=== PATIENT | female | born 1995 | race Caucasian/White ===

== ENCOUNTER 2019-10-08 16:37 | Outpatient (CLI) | payer BC, MEDICAID ==
--- NOTE | 2019-10-08 22:47 | Ultrasound Report ---
Reason: POSITIVE TEST Procedure Date: 10/08/2019 Accession Number: [id number] / [id number] Procedure: US - OB First Trimester CPT Code: Final Report FULL RESULT: EXAM: FIRST TRIMESTER OBSTETRIC ULTRASOUND (Less than 11 weeks) EXAM DATE: 10/08/2019 05:52 PM. CLINICAL HISTORY: POSITIVE TEST. LMP: Unknown. COMPARISONS: None. TECHNIQUE: Transabdominal and transvaginal ultrasound examination with static image documentation. CLINICAL DATES: EGA 10 weeks 1 day with SOLEDAD 05/04/2020 based on LMP. ASSESSMENT: Gestational Sac: Single intrauterine. Mean gestational sac diameter: 16.3 mm = 6 weeks 3 days. Embryo: CRL (crown-rump length) 8.4 mm = 6 weeks 6 days. Cardiac activity: 131 beats per minute. Yolk sac: 3.3 mm. Amniotic fluid: Not accurately assessed at this gestational age. Early placenta: Not visible at this gestational age. Other: Small right-sided perigestational hypoechoic collection measuring 1.5 x 0.4 x 0.3 cm, most likely representing a small perigestational hematoma.. MATERNAL STRUCTURES: Uterus: Anteverted. Unremarkable. Cervix: Closed. Right Ovary/Adnexa: The ovary measures 3.9 x 1.7 x 2.3 cm, volume 8 cc. Unremarkable. Left Ovary/Adnexa: The ovary measures 4.1 x 2.5 x 2.6 cm, volume 14.3 cc. Corpus luteal cyst measuring 2.2 x 2 x 1.6 cm. Free Fluid: None. Other: None. IMPRESSION: 1. Single viable intrauterine at EGA 6 weeks 6 days with SOLEDAD 05/27/2020 based on crown-rump length, which is discordant with clinical dates. 2. Small perigestational hematoma measuring 1.5 x 0.4 x 0.3 cm.. RADIA
== END 2019-10-08 16:38 | disposition home or self-care (01) ==
LOC: DI 16:37
PROVIDERS: ATTEND Nurse Practitioner Obstetrics & Gynecology
DX: Z32.01 Encounter for pregnancy test, result positive (principal)
CPT/HCPCS: 76801

== ENCOUNTER 2019-10-13 10:00 | Outpatient (CLI) | payer BC, MEDICAID ==
[2019-10-13 15:48] LABS: MUDS CUTOFF CONCENTRATIONS CUTOFF CONC BELOW:
[2019-10-13 16:12] LABS: BILIRUBIN,URINE NEGATIVE (NEGATIVE); GLUCOSE, URINE (UA) NEGATIVE (NEGATIVE); KETONES,URINE (UA) NEGATIVE (NEGATIVE); LEUKOCYTE ESTERASE, URINE NEGATIVE (NEGATIVE); NITRITE,URINE NEGATIVE (NEGATIVE); OCCULT BLOOD,URINE NEGATIVE (NEGATIVE); PROTEIN,URINE 30 mg/dL (NEGATIVE); UROBILINOGEN,URINE 0.2 (NORMAL) E.U./dL (NORMAL)
[2019-10-13 16:19] LABS: CLARITY,URINE CLEAR (CLEAR)
[2019-10-13 16:44] LABS: AMPHETAMINE SCREEN,URINE POSITIVE (NEGATIVE); BENZODIAZEPINES SCREEN, URINE NEGATIVE (NEGATIVE); COCAINE SCREEN URINE NEGATIVE (NEGATIVE); METHADONE SCREEN, URINE NEGATIVE (NEGATIVE); METHAMPHETAMINES SCREEN, URINE NEGATIVE (NEGATIVE); OPIATE SCREEN, URINE NEGATIVE (NEGATIVE); OXYCODONE SCREEN, URINE NEGATIVE (NEGATIVE); PROPOXYPHENE SCREEN, URINE NEGATIVE (NEGATIVE); TRICYCLIC ANTIDEPRESSANT,URINE NEGATIVE (NEGATIVE)
[2019-10-13 16:57] LABS: RBC,URINE 0-5 /HPF (0-5)
[2019-10-13 16:58] LABS: AMORPHOUS SEDIMENT,UR Marked /LPF; BACTERIA,URINE Few /HPF (None Seen); CASTS, URINE 0-2 Fine Granular /LPF; CRYSTALS,URINE 11-25 Ca Oxalate /LPF; MUCUS,URINE Few Strands; SQUAMOUS EPITHELIAL CELL,UR MOD Squamous (<= Few)
[2019-10-13 20:45] LABS: TRICHOMONAS VAGINALIS DNA NEGATIVE (NEGATIVE)
== END 2019-10-13 23:59 | disposition home or self-care (01) ==
LOC: LAB.R 10:00
PROVIDERS: ATTEND Obstetrics & Gynecology
DX: Z11.3 Encounter for screening for infections with a predominantly sexual mode of transmission (principal)
CPT/HCPCS: 80306; 80324; 80359; 81001; 81599; 87086; 87491; 87591; 87661

== ENCOUNTER 2019-11-09 12:59 | Outpatient (CLI) | payer BC, MEDICAID ==
[2019-11-09 13:54] LABS: BASOPHILS % (AUTO) 0.5 %; EOSINOPHILS # (AUTO) 0.2 10^3/uL (0.0-0.7); EOSINOPHILS % (AUTO) 2.1 %; HGB - HEMOGLOBIN 12.3 g/dL (12.0-16.0); LYMPHOCYTES # (AUTO) 2.2 10^3/uL (1.5-3.5); LYMPHOCYTES % (AUTO) 27.2 %; MEAN CORPUSCULAR HEMOGLOBIN 29.1 pg (27.0-31.0); MEAN CORPUSCULAR HGB CONC 32.5 g/dL (32.0-36.0); MEAN CORPUSCULAR VOLUME 89.6 fL (81.0-99.0); MEAN PLATELET VOLUME 9.6 fL (7.9-10.8); MONOCYTES # (AUTO) 0.6 10^3/uL (0.0-1.0); MONOCYTES % (AUTO) 7.5 %; NEUTROPHILS % (AUTO) 62.3 %; PLT - PLATELET COUNT 357 10^3/uL (130-450); RED BLOOD COUNT 4.22 10^6/uL (4.20-5.40); RED CELL DISTRIBUTION WIDTH 13.1 % (12.0-15.0); WHITE BLOOD COUNT 8.1 x10^3/uL (4.8-10.8)
[2019-11-10 11:35] LABS: HEPATITIS B SURFACE ANTIGEN NON-REACTIVE (NON-REACTIVE)
[2019-11-10 12:35] LABS: HEPATITIS C ANTIBODY NON-REACTIVE (NON-REACTIVE)
[2019-11-10 12:49] LABS: HIV AG/AB 4TH GEN NON-REACTIVE (NON-REACTIVE)
== END 2019-11-09 13:00 | disposition home or self-care (01) ==
LOC: LAB 12:59
PROVIDERS: ATTEND Obstetrics & Gynecology
DX: Z36.0 Encounter for antenatal screening for chromosomal anomalies (principal)
CPT/HCPCS: 36415; 81599; 85025; 86592; 86762; 86803; 86850; 86900; 86901; 87340; 87389

== ENCOUNTER 2020-01-02 09:59 | Outpatient (CLI) | payer BC, MEDICAID ==
--- NOTE | 2020-01-03 04:24 | Ultrasound Report ---
Reason: Procedure Date: 01/02/2020 Accession Number: [id number] / [id number] Procedure: US - OB Detailed Eval CPT Code: Final Report FULL RESULT: EXAM: COMPLETE OBSTETRICAL ULTRASOUND EXAM DATE: 01/02/2020 11:16 AM. CLINICAL HISTORY: anatomic survey. COMPARISON: OB FIRST TRIMESTER 10/08/2019 4:55 PM. TECHNIQUE: Real-time sonographic evaluation of the fetus performed by the bariatric program coordinator. Multiple manufacturer representative static images were saved for review. DATING: Established EGA 19 weeks 1 day with SOLEDAD 05/27/2020 based on first ultrasound. EGA 19 weeks 3 days with SOLEDAD 05/25/2020 based on the current ultrasound. GENERAL EVALUATION Steinberg . Cardiac activity: 157 bpm. movement: Visualized. Presentation: Variable. Placenta: Posterior position. No evidence for previa. Umbilical cord: 3 vessel cord. Eccentric placental cord origin which is 1.9 cm from the placental edge. Amniotic fluid: Subjectively normal. MVP 4.4 cm. BIOMETRY Bi-Parietal Diameter (BPD): 4.30 cm, 19 weeks 0 days Head Circumference (HC): 16.43 cm, 19 weeks 1 day Abdominal Circumference (AC): 15.29 cm, 20 weeks 3 days Femur Length (FL): 2.89 cm, 18 weeks 6 days Estimated Weight: 306 g, 76.2 percentile for 19 weeks 1 day. ANATOMY There appears to be clubfoot of the left foot. Otherwise, intracranial structures, profile, face/nose/lips, spine, 4 chamber heart and outflow tracts, stomach, abdominal wall and cord insertion, diaphragm, kidneys, bladder, and extremities were visualized and demonstrate no abnormality. MATERNAL STRUCTURES Uterus: Unremarkable. Cervix: Long and closed. Transabdominal length 4.0 cm. Right ovary/adnexa: Unremarkable. Left ovary/adnexa: Unremarkable. Free fluid: None. IMPRESSION: 1. Steinberg live intrauterine with gestational age 19 weeks 1 day based on first ultrasound. 2. Estimated weight is within expected limits for assigned dating. 3. There appears to be clubfoot of the left foot. Otherwise normal anatomic survey. RADIA
== END 2020-01-02 10:00 | disposition home or self-care (01) ==
LOC: DI 09:59
PROVIDERS: ATTEND Obstetrics & Gynecology
DX: Z36.89 Encounter for other specified antenatal screening (principal)
CPT/HCPCS: 76811

== ENCOUNTER 2020-02-08 07:00 | Outpatient (CLI) | payer BC, MEDICAID ==
[2020-02-08 22:32] LABS: CANDIDA GROUP DNA NEGATIVE (NEGATIVE); CANDIDA KRUSEI DNA NEGATIVE (NEGATIVE); TRICHOMONAS VAGINALIS DNA NEGATIVE (NEGATIVE)
== END 2020-02-08 23:59 | disposition home or self-care (01) ==
LOC: LAB.R 07:00
PROVIDERS: ATTEND Obstetrics & Gynecology
DX: N89.8 Other specified noninflammatory disorders of vagina (principal)
CPT/HCPCS: 87661; 87801

== ENCOUNTER 2020-03-14 11:27 | Outpatient (CLI) | payer MEDICAID, OTHER ==
[2020-03-14 12:54] LABS: HGB - HEMOGLOBIN 10.6 g/dL (12.0-16.0); MEAN CORPUSCULAR HEMOGLOBIN 29.4 pg (27.0-31.0); MEAN CORPUSCULAR HGB CONC 32.9 g/dL (32.0-36.0); MEAN CORPUSCULAR VOLUME 89.2 fL (81.0-99.0); MEAN PLATELET VOLUME 9.1 fL (7.9-10.8); RED BLOOD COUNT 3.61 10^6/uL (4.20-5.40); RED CELL DISTRIBUTION WIDTH 12.7 % (12.0-15.0); WHITE BLOOD COUNT 9.5 x10^3/uL (4.8-10.8)
== END 2020-03-14 11:28 | disposition home or self-care (01) ==
LOC: LAB 11:27
PROVIDERS: ATTEND Obstetrics & Gynecology
DX: Z34.90 Encounter for supervision of normal pregnancy, unspecified, unspecified trimester (principal)
CPT/HCPCS: 36415; 82950; 85027; 86850

== ENCOUNTER 2020-04-26 16:16 | Outpatient (CLI) | payer OTHER, MEDICAID ==
[2020-04-26 16:33] LABS: MEAN CORPUSCULAR HEMOGLOBIN 26.8 pg (27.0-31.0); MEAN CORPUSCULAR VOLUME 83.9 fL (81.0-99.0); MEAN PLATELET VOLUME 9.5 fL (7.9-10.8); RED BLOOD COUNT 4.1 10^6/uL (4.20-5.40); RED CELL DISTRIBUTION WIDTH 13.2 % (12.0-15.0); WHITE BLOOD COUNT 9.5 x10^3/uL (4.8-10.8)
== END 2020-04-26 16:17 | disposition home or self-care (01) ==
LOC: LAB 16:16
PROVIDERS: ATTEND Obstetrics & Gynecology
DX: Z34.90 Encounter for supervision of normal pregnancy, unspecified, unspecified trimester (principal)
CPT/HCPCS: 36415; 85027

== ENCOUNTER 2020-04-30 08:00 | Outpatient (CLI) | payer OTHER, MEDICAID ==
[2020-04-30 20:57] LABS: TRICHOMONAS VAGINALIS DNA NEGATIVE (NEGATIVE)
== END 2020-04-30 23:59 | disposition home or self-care (01) ==
LOC: LAB.R 08:00
PROVIDERS: ATTEND Obstetrics & Gynecology
DX: Z36.85 Encounter for antenatal screening for Streptococcus B (principal); Z11.3 Encounter for screening for infections with a predominantly sexual mode of transmission
CPT/HCPCS: 87491; 87591; 87661; 87797

== ENCOUNTER 2020-08-27 16:00 | Outpatient (CLI) | payer OTHER, MEDICAID ==
[2020-08-28 19:17] LABS: TRICHOMONAS VAGINALIS DNA NEGATIVE (NEGATIVE)
== END 2020-08-27 23:59 | disposition home or self-care (01) ==
LOC: LAB.R 16:00
PROVIDERS: ATTEND Obstetrics & Gynecology
DX: Z11.3 Encounter for screening for infections with a predominantly sexual mode of transmission (principal)
CPT/HCPCS: 87491; 87591; 87661

== ENCOUNTER 2023-10-01 12:14 | Outpatient (CLI) | payer OTHER ==
--- NOTE | 2023-10-01 17:05 | XRAY Report ---
PROCEDURE: Spine Scoliosis Study 2-3V INDICATIONS: LUMBAGO TECHNIQUE: Frontal and lateral standing views of the spine acquired. COMPARISON: None. FINDINGS: There is very mild left 4 curvature of thoracic spine with apex at T6 level and cob angle measures 6. 1 degrees. Bone morphology: No developmental anomalies of the ribs or spine. 12 pairs of ribs are noted. 5 nonrib-bearing lumbar vertebrae are present. No suspicious bony lesions. IMPRESSION: Very mild leftward curvature of thoracic spine with apex at T6 level and Aguirre angle measures 6.1 degr ees. No vertebral body deformity. No compression fracture or spondylolisthesis. No significant kyphos is. Reviewed by: Darron Dugan MD on 10/01/2023 5:04 PM PST Approved by: Darron Dugan MD on 10/01/2023 5:04 PM PST Station ID: [id number]
== END 2023-10-01 12:15 | disposition home or self-care (01) ==
LOC: DI.N 12:14
PROVIDERS: ATTEND Nurse Practitioner Family
DX: M41.9 Scoliosis, unspecified (principal); M54.50 Low back pain, unspecified